=== PATIENT | female | born 1995 | race African-American/Black ===

== ENCOUNTER 2019-06-14 16:39 | Emergency (ER) | payer BC ==
[~2019-06-14] VITALS: Ht 177.8 cm; Wt 57.3 kg
[2019-06-14] MEDS ORDERED: EFFE150C2 PO (16:52)
[2019-06-14] MEDS ORDERED: SYNT125T PO (16:52)
[2019-06-14] MEDS ORDERED: ABIL1TAB11 PO (16:52)
[2019-06-14] MEDS ORDERED: XULA1DIS TOP (16:56)
[2019-06-14] MEDS ORDERED: NS 1,000 ML IV ONE (17:30)
[2019-06-14] MEDS ORDERED: KETOROLAC 30 MG/ML 1ML VIAL IV ONE (17:30)
[2019-06-14] MEDS ORDERED: METOCLOPRAMIDE INJ 10MG/2ML VIAL (J2765 PER 1) IV ONE (17:30)
[2019-06-14] MEDS ORDERED: DICYCLOMINE 10 MG CAP PO ONE (17:30)
[2019-06-14 18:13] LABS: BASO % 0.2 % (0.0-1.0); EOS % 0.4 % (0.0-3.0); HEMATOCRIT 29.7 % (36.0-47.0); HEMOGLOBIN 9.4 g/dl (12.0-15.5); LYMPH # 1.4 10^3/uL (1.5-5.0); LYMPH % 28.7 % (24.0-44.0); MEAN CORPUSCULAR HGB CONC 31.6 g/dl (32.0-36.5); MEAN CORPUSCULAR VOLUME 85.3 fl (80.0-96.0); MONO # 0.4 10^3/uL (0.0-0.8); MONO % 7.3 % (0.0-5.0); NEUTROPHILS # 3.1 10^3/uL (1.5-8.5); PLATELET COUNT, AUTOMATED 297 10^3/uL (150-450); RED BLOOD COUNT 3.48 10^6/uL (4.00-5.40); WHITE BLOOD COUNT 4.9 10^3/uL (4.0-10.0)
[2019-06-14 18:58] LABS: ALBUMIN 3.4 GM/DL (3.2-5.2); ALT/SGPT 29 U/L (12-78); BILIRUBIN,DIRECT < 0.1 MG/DL (0.0-0.2); BILIRUBIN,TOTAL 0.1 MG/DL (0.2-1.0); C REACTIVE PROTEIN QUANTITATIV 0.44 MG/DL (0.00-0.30); LIPASE 82 U/L (73-393); TOTAL PROTEIN 7.1 GM/DL (6.4-8.2)
[2019-06-14] MEDS ORDERED: ONDA4TAB6 PO (19:25)
[2019-06-14] MEDS ORDERED: DICY10CA13 PO (19:25)
[2019-06-14 19:30] VITALS: BP 132/73
== END 2019-06-14 19:40 | disposition home or self-care (01) ==
LOC: M ED 16:39
DX: D64.9 Anemia, unspecified (principal); R51 Headache; R10.9 Unspecified abdominal pain; R11.2 Nausea with vomiting, unspecified; R19.7 Diarrhea, unspecified; E03.9 Hypothyroidism, unspecified; K21.9 Gastro-esophageal reflux disease without esophagitis; Z98.84 Bariatric surgery status; Z79.899 Other long term (current) drug therapy; Z79.01 Long term (current) use of anticoagulants; Z79.3 Long term (current) use of hormonal contraceptives
CPT/HCPCS: 80047; 80076; 81001; 83605; 83690; 84702; 85025; 86140; 87486; 87581; 87633; 87798; 96361; 96374; 96375; 99284; C9803; J1885; J2765; U0002

== ENCOUNTER → 2019-08-01 | Outpatient (REF) | payer BC ==
[~2019-08-01] MED LIST: ABIL1TAB11 PO; DICY10CA13 PO; EFFE150C2 PO; ONDA4TAB6 PO; SYNT125T PO; XULA1DIS TOP
[2019-08-01 18:29] LABS: PERCENT SATURATION 5.4 % (13.2-45.0)
[2019-08-02 09:35] LABS: FOLATE 20.1 NG/ML (>5.4)
== END ==
LOC: M LAB REF 16:28
PROVIDERS: ATTEND Family Medicine
DX: D50.8 Other iron deficiency anemias (principal)

== ENCOUNTER → 2019-11-14 | Outpatient (CLI) | payer BC ==
[~2019-11-14] MED LIST changes: +EFFE75CA2 PO; +FERR325T81 PO
== END ==
LOC: M LABSMTC 10:55
PROVIDERS: ATTEND Anesthesiology
DX: Z01.812 Encounter for preprocedural laboratory examination (principal); Z20.828 Contact with and (suspected) exposure to other viral communicable diseases
CPT/HCPCS: C9803; U0003

== ENCOUNTER → 2019-12-19 | Outpatient (CLI) | payer SELFPAY | LOC: M LABSMTC 12:30 | PROVIDERS: ATTEND Pediatrics | DX: Z20.828 Contact with and (suspected) exposure to other viral communicable diseases (principal) ==

== ENCOUNTER 2020-02-18 12:58 | Outpatient (RCR) | payer BC, OTHER | END 2020-03-08 | LOC: M PT 12:58 | PROVIDERS: ATTEND Nurse Practitioner Family | DX: M54.41 Lumbago with sciatica, right side (principal) ==

== ENCOUNTER 2020-02-21 08:26 | Day surgery (SDC) | payer BC, OTHER ==
[~2020-02-21] VITALS: Ht 177.8 cm; Wt 80.3 kg
[~2020-02-21 08:26] MED LIST changes: +NS 1,000 ML IV ONE
--- OUTSIDE RECORDS SUMMARY | 2020-02-21 08:30 | CCD | Continuity of Care Document ---
Author Author [facility] Organization [facility] Address Unknown Phone Unavailable Care Team Providers Care Gang Pusher Name Role Phone Natalie JONES FELT HANGER, Leatha You Unavailable Unavailable Allergies, Adverse Reactions, Alerts Substance Reaction Status Criticality BUPROPION HCL Active No Information Medications Medication Instructions Dosage Effective Dates (start - stop) Sta tus Comments Xulane 150 mcg-35 mcg/24 hr transdermal patch Xulane 1 patch per week x 3 weeks then remove x 1 week - Active Tirosint 125 mcg capsule take 1 capsule by oral route every day 12 5 MCG - Active Effexor XR 75 mg capsule,extended release take 1 capsu le by oral route every day with food 75 MG - Active Xulane 150 mcg-35 mcg/24 hr transdermal patch Xulane 1 patch per week x 3 weeks then remove x 1 week - No Longer Active Problems Condition Effective Dates (start - stop) Clinical Status C omments Other sex counseling Encounter for oth general cnsl and advice on contraception Enctr srvlnc transdermal patch hormonal contraceptive device Pelvic and perineal pain Encounter for test, result negative Human immunodeficiency virus [HIV] counseling Enctr for init prescription of patch hormonal contracep dev Encounter for initial prescription of contraceptive pills Encounter for test, result negative Encntr screen for infections w sexl mode of transmiss Encounter for screening for human immunodeficiency virus Human immunodeficiency virus [HIV] counseling Encounter for initial prescription of contraceptive pills Other sex counseling Encounter for oth general cnsl and advice on contraception Procedures Procedure Date OFFICE VISIT, EST CVR Washerette Machine Operator.Svc. Other CVR Washerette Machine Operator.Svc. Contraceptive CVR Washerette Machine Operator.Svc. STI / H Results Test Name Date and Time Measure Units Reference Range Abnormal Flag St atus Comments No Information Advance Directives Directive Yes / No Effective Date File Name No Information Encounters Encounter Description Practice Location Reason(s) For Visit Diagnose s Date Provider Providers Copied on Encounter OFFICE VISIT, EST [facility], [address] [place] [address], [id number], tel:[phone] [facility] [place] Pelvic Pain (chief complaint) Other sex counselingEncounter for oth ge neral cnsl and advice on contraceptionEnctr srvlnc transdermal patch hormonal contraceptive devicePelvic and perineal pain Natalie You. [address] [place] [address], [id number], [place]. tel:[phone] Referring Provider: Leatha Pacheco, [address] [place] [address], [id number]. tel:[phone] [facility], [address] [place] [address], [address] [place] [address], tel:[phone] [facility] [place] Encounter for pregn lydia test, result negativeHuman immunodeficiency virus [HIV] counselingEnctr for init prescription of patch hormonal contracep dev Jairo Sylvester. [address] [place] [address], [id number], . tel:[phone] Referring Provider: Nga Gill, [address] [place] [address], [id number]. tel:[phone] [facility], [address] [place] [address], [id number], [place] tel:[phone] [facility] [place] Encounter for initi al prescription of contraceptive pills Jacob Jimenez. [address] [place] [address], [id number], . tel:[phone] [facility], [address] [place] [address], [id number], tel:[phone] [facility] [place] Encounter for pregn lydia test, result negativeEncntr screen for infections w sexl mode of transmissEncounter for screening for human immunodeficiency virusHuman immunodeficiency virus [HIV] counselingEncounter for initial prescription of contraceptive pillsOther sex counselingEncounter for oth general cnsl and advice on contraception Jacob Barbara. [address], [place], [id number] , [place]. tel:[phone] Referring Provider: Barbara James, [address], [place], [id number]. tel:[phone] Family History Family Member Diagnosis Age At Onset 1st degree relative No hx of coronary heart disease (female <65, male <55) 1st degree relative No hx of cancer of breast, colon, endome trium or ovary 1st degree relative No hx of venous thromboembolism Immunizations Vaccine Date Status Comments No Information Payers Payer name Insurance type Covered libertarian ID Authorization(s ) Medicaid MC [id number] Social History Type Description Quantity Date Captured Comments Alcohol Use Details Unknown Caffeine Use Details Unknown Tobacco Use Status No Information Smoking Status Never smoker Sex Female Vital Signs Date / Time: Height Weight BMI Pulse Rate Blood Pressure Temperatu re Respiratory Rate Body Surface Area Head Circumference BMI percentile Pulse Ox In haled Ox No Information Chief Complaint And Reason For Visit Most recent encounter only, dated '01/06/2020 10:00'. Pelvic Pain (chief complaint) Reason For Referral Reason For Referral No Information Plan Of Treatment Date Type Action Status No Information History Of Present Illness Encounter Date Complaint History Of Present I llness No Information Functional Status Date Functional Assessment No Information Medications Administered Medication Instructions Dosage Effective Dates (start - stop) Sta tus Comments No Information Instructions Date Instruction Additional Informati on No Information Assessments Type Assessment Date assessment Other sex counseling assessment Encounter for oth general cnsl and advic e on contraception assessment Enctr srvlnc transdermal patch hormonal contraceptive device assessment Pelvic and perineal pain Goals Health Concern Goal Type Priority Status Date No Information Medical Equipment Description Device [place] Device Identifier Effective Eron es (start - stop) Status No Information Mental Status Date Cognitive Assessment Orientation - Oriented to ti me, place, person, situation.Normal Orientation Health Concerns Observation Date No Information Concern Status Date No Information Physical Examination Exam Findings Details Neurological Normal Level of consciousne ss - Normal. Orientation - Normal. Psychiatric Normal Orientation - Salcha ed to time, place, person & situation.
--- OUTSIDE RECORDS SUMMARY | 2020-02-21 08:30 | CCD ---
Author Author [facility] Organization [facility] Address Unknown Phone Unavailable Care Team Providers Care Composite Bond Worker Name Role Phone Nano Perez PROBLEMS Type Condition ICD9-CM Code EEI22-AU Code Onset Dates Condition S tatus SNOMED Code Notes Problem Acquired hypothyroidism E03.9 Active 91907347 2 Problem Anxiety disorder, unspecified F41.9 Active 23 1145835 Problem Gastroesophageal reflux dise ase, unspecified whether esophagitis present K21.9 Active 492871034 Problem Other tobacco product nicotine dependence, uncomplicated F17.290 Active 48887393 Problem Acute right-sided low back pain with right-sided sciatica M54.41 Active 255738590 Problem Depression with anxiety F41.8 Active 77400095 6 ALLERGIES No Known Allergies ENCOUNTERS from 1994 to 2020-01-16 Encounter Location Date Provider Diagnosis [address] [address] Jan, 020 Nano Perez Acute right-sided low back pain with right-sided sciatica M54.41 ; Acquired hypothyroidism E03.9 ; Gastroesophageal reflux disease, unspecified whether esophagitis present K21.9 ; Depression with anxiety F41.8 and Other tobacco product nicotine dependence, uncomplicated F17.290 IMMUNIZATIONS Vaccine Route Administration Date Status Influenza (18 yrs & older) Flublok Unknown Jan 15, 2020 Administered SOCIAL HISTORY Tobacco Use: Social History Observation Description Date Details (start date - stop date) Former Smoker Sex Assigned At : Social History Observation Description Sex Assigned At Unknown Education: Question Answer Notes Level of Education: College Audit Question Answer Notes Total Score: 1 Interpretation: Alcohol Education Sexual Hx: Question Answer Notes Had sex in the last 12 months (vaginal, oral, or anal)? Yes LMP: 12/23/19 Have you ever had an STD? No Prevention Strategies discussed: Condoms with Men only Use protection? Yes How often? Most of the time Tobacco Use: Question Answer Notes Are you a: former smoker Quit 07/2014 - uses v ape REASON FOR REFERRAL No Information VITAL SIGNS Weight 180 lbs Jan, Height 70 in Jan, BMI 25.82 kg/m2 Jan, Heart Rate 80 /min Jan, Respiratory Rate 18 /min Jan, Temperature 99.3 degrees Fahrenheit Jan, Oximetry 100 Jan, Blood pressure systolic 120 mm Hg Jan, Blood pressure diastolic 80 mm Hg Jan, MEDICATIONS Medication SIG (Take, Route, Frequency, Duration) Notes Start Da te End Date Status Aripiprazole 5 MG 1 tablet Orally Once a day for 30 day(s) Active Levothyroxine Sodium 125 MCG 1 tablet in the morning o n an empty stomach Orally Once a day Active Pantoprazole Sodium 40 MG 1 tablet Orally Once a day Active Effexor XR 75 MG 1 capsule with food Orally Once a day for 30 day(s) Active Dicyclomine HCl 10 MG 2 capsules Orally Three times a day for 30 day( s) Active Physical Therapy evaluate and treat as directed _ 1-3X /week DX: M54.41 for 30 Days Jan, Active PROCEDURES No Information RESULTS No Results REASON FOR VISIT SLEEP MANAGER-To Establish Care , Back pain MEDICAL (GENERAL) HISTORY Type Description Date Medical History Depression/Anxiety disorder Medical History Hypothyroid Medical History GERD - Marita (scheduled for EGD/[place] noscopy 02/2020 Medical History Low Back Pain 2017 Surgical History Gallbladder 2012 Surgical History Gastric sleve 12/04/2012 Surgical History Tummy tuck 2016 Goals Section No Information Health Concerns No Information MEDICAL EQUIPMENT No Information MENTAL STATUS No Information FUNCTIONAL STATUS No Information ASSESSMENTS Encounter Date Diagnosis Assessment Notes Treatment Notes Treatm ent Clinical Notes Jan, Acute right-sided low back p ain with right-sided sciatica (ICD-10 - M54.41) supportive care advised with heat, stretching, topical rub with lidocaine and proper body mechanics, advised physical therapy. May use tylenol as needed for pain Jan, Acquired hypothyroidism (ICD-10 - E03.9) f/up after labs Jan, Gastroesophageal reflux dise ase, unspecified whether esophagitis present (ICD-10 - K21.9) f/up per Dr Kirkland - states EGD and colonoscopy pending Jan, Depression with anxiety (ICD-10 - F41.8) referred for counselling Jan, Other tobacco product nicoti ne dependence, uncomplicated (ICD-10 - F17.290) encouraged nicotine cessation PLAN OF TREATMENT Medication Medication Name Sig Start Date Stop Date Pantoprazole Sodium 40 MG 1 tablet Orally Once a day Physical Therapy evaluate and treat as directed _ 1-3X /week DX: M54.41 for 30 Days Jan, Levothyroxine Sodium 125 MCG 1 tablet in the morning o n an empty stomach Orally Once a day Treatment Notes Assessment Notes Clinical Notes Acute right-sided low back pain with right-sided sciat ica supportive care advised with heat, stretching, topical rub with lidocaine and proper body mechanics, advised physical therapy. May use tylenol as needed for pain Acquired hypothyroidism f/up after labs Gastroesophageal reflux disease, unspecified whether e sophagitis present f/up per Dr Kirkland - states EGD and colonoscopy pending Depression with anxiety referred for counselling Other tobacco product nicotine dependence, uncomplicat ed encouraged nicotine cessation Treatment Notes Test Name Order Date Comprehensive Metabolic Profile (CMP) 2020-01-16 FREE T4 & TSH PANEL 2020-01-16 Next Appt Details 6 Weeks Reason:f/u after labs Provider Name:Nano Chris, 2020-02-26 04:0 0:00 PM, [address] [place], [id number], Follow Up:6 Weeksf/u after labs Insurance Providers Payer Name Payer Address Payer Phone Insured Name Patient Relati onship to Insured Coverage Start Date Coverage End Date [facility] [employer] [facility] [address] [facility] [id number] STACEY SALMERON self
--- OUTSIDE RECORDS SUMMARY | 2020-02-21 08:30 | CCD | Continuity of Care Document ---
Author Author [facility] Organization [facility] Address Unknown Phone Unavailable Care Team Providers Care Drag Seiner Name Role Phone Natalie JONES UPS DRIVER, Leatha You Unavailable Unavailable Allergies, Adverse Reactions, [...] day with food 75 MG - Active Problems Condition Effective Dates (start - [...] and advice on contraception Procedures Procedure Date No Information Results Test Name Date and Time Measure Units Reference Range Abnormal Flag St atus Comments No Information Advance Directives Directive Yes / No Effective Date File Name No Information Encounters Encounter Description Practice Location Reason(s) For Visit Diagnose s Date Provider Providers Copied on Encounter [facility], [address] [place], [place], [id number], tel:[phone] [facility] No Information Roz You. [address] [place] [address], [id number], [place]. tel:[phone] [facility], [address] [place] [address], [id number], [place] tel:[phone] [facility] [place] Other sex counselin gEncounter for oth general cnsl and advice on contraceptionEnctr srvlnc transdermal patch hormonal contraceptive devicePelvic and perineal pain Natalie You. [address] [place] [address], [id number], [place]. tel:[phone] Referring Provider: Leatha Estrada NP, [address] [place] [address], [id number]. tel:[phone] [facility], [address] [place] [address], [id number], [place] tel:[phone] [facility] Encounter for pregn lydia test, result negativeHuman immunodeficiency virus [HIV] counselingEnctr for init prescription of patch hormonal contracep dev Jairo Sylvester. [address] [place] [address], [id number], [place]. tel:[phone] Referring Provider: Nga Gill, [address] [place] [address], [id number]. tel:[phone] [facility], [address] [place] [address], [id number], [place] tel:[phone] [facility] Encounter for initi al prescription of contraceptive pills Jacob Jimenez. [address] [place] [address], [id number], [place]. tel:[phone] [facility], [address] [place] [address], [id number], [place] tel:[phone] [facility] [place] Encounter for pregn lydia test, result negativeEncntr screen for infections w sexl mode of transmissEncounter for screening for human immunodeficiency virusHuman immunodeficiency virus [HIV] counselingEncounter for initial prescription of contraceptive pillsOther sex counselingEncounter for oth general cnsl and advice on contraception Jacob Jimenez. [address], [place], [id number] , . tel:[phone] Referring Provider: Barbara James, [address], [place], [id number]. tel:[phone] Family History Family Member Diagnosis Age At Onset 1st degree relative No hx of coronary heart disease (female <65, male <55) 1st degree relative No hx of cancer of breast, colon, endome trium or ovary 1st degree relative No hx of venous thromboembolism Immunizations Vaccine Date Status Comments No Information Payers Payer name Insurance type Covered libertarian ID Authorization(s ) Medicaid MC [id number] Social History Type Description Quantity Date Captured Comments Alcohol Use Details Unknown Caffeine Use Details Unknown Tobacco Use Status No Information Smoking Status Never smoker Sex Female Vital Signs Date / Time: Height Weight BMI Pulse Rate Blood Pressure Temperatu re Respiratory Rate Body Surface Area Head Circumference BMI percentile Pulse Ox In haled Ox No Information Chief Complaint And Reason For Visit No Information Reason For Referral Reason For Referral No [...] on No Information Assessments Type Assessment Date No Information Goals Health Concern Goal Type Priority Status Date No Information Medical Equipment Description Device [place] Device Identifier Effective Eron es (start - stop) Status No Information Mental Status Date Cognitive Assessment No Information Health Concerns Observation Date No Information Concern Status Date No Information Physical Examination Exam Findings Details No Information
--- OUTSIDE RECORDS SUMMARY | 2020-02-21 08:30 | CCD | Continuity of Care Document ---
Author Author [facility] Organization [facility] Address Unknown Phone Unavailable Care Team Providers Care Seafood Service Team Member Name Role Phone Janelle Koroma MD Unavailable Unavailable Allergies, Adverse Reactions, Alerts Substance [...] Provider Providers Copied on Encounter [facility], [address] [place], [place], [id number], tel:[phone] [facility] No Information W melissa Luis. [address] [place] [address], [id number], . tel:[phone] [facility], [address] [place] [address], [id number], [place] tel:[phone] [facility] [place] Other sex counselin gEncounter for oth general cnsl and advice on contraceptionEnctr srvlnc transdermal patch hormonal contraceptive devicePelvic and perineal pain Natalie You. [address] [place] [address], [id number], [place]. tel:[phone] Referring Provider: Leatha Estrada NP, [address] [place] [address], [id number]. tel:[phone] [facility], [address] [place] [address], [id number], [place] tel:[phone] [facility] Encounter for pregn lydia test, result negativeHuman immunodeficiency virus [HIV] counselingEnctr for init prescription of patch hormonal contracep dev Jairo Sylvester. [address] [place] [address], [id number], [place]. tel:[phone] Referring Provider: Nga Gill, [address] [place] [address], [id number]. tel:[phone] [facility], [address] [place] [address], [id number], [place] tel:[phone] [facility] Encounter for initi al prescription of contraceptive pills Jacob Jimenez. [address] [place] [address], [id number], [place]. tel:[phone] [facility], [address] [place] [address], [id number], [place] tel:[phone] Counts include [facility] beds at [facility] Encounter for pregn lydia test, result negativeEncntr screen for infections w sexl mode of transmissEncounter for screening for human immunodeficiency virusHuman immunodeficiency virus [HIV] counselingEncounter for initial prescription of contraceptive pillsOther sex counselingEncounter for oth general cnsl and advice on contraception Jacob Jimenez. [address], [place], [id number] , . tel:[phone] Referring Provider: Barbara James, [address], [place], [id number]. tel:[phone] Family History Family Member Diagnosis Age At Onset 1st degree relative No hx of coronary heart disease (female <65, male <55) 1st degree relative No hx of cancer of breast, colon, endome trium or ovary 1st degree relative No hx of venous thromboembolism Immunizations Vaccine Date Status Comments No Information Payers Payer name Insurance type Covered democrat ID Authorization(s ) Medicaid MC [id number] Social History Type Description Quantity Date Captured [...] Date No Information Medical Equipment Description Device [place] Device Identifier Effective Eron es (start - stop) Status No Information Mental Status Date Cognitive Assessment No Information Health Concerns Observation Date No Information Concern Status Date No Information Physical Examination Exam Findings Details No Information
--- OUTSIDE RECORDS SUMMARY | 2020-02-21 08:30 | CCD | Continuity of Care Document ---
Author Author [facility] Organization [facility] Address Unknown Phone Unavailable Care Team Providers Care Foot Worker Name Role Phone Dwello ROSELYN DEMPSEY, Diamond Unavailable Unavailable Allergies, Adverse Reactions, Alerts Substance [...] (start - stop) Clinical Status C omments Pelvic and perineal pain Encounter for oth general cnsl and advice on contraception Other sex counseling Encntr screen for infections w sexl mode of transmiss Other sex counseling Encounter for oth general [...] Procedures Procedure Date OFFICE VISIT, EST CVR Blood Pressure CVR Med.Svc. Height/Weight CVR Junior Manufacturing Engineer.Svc. Other CHYLMD TRACH, SWAB N.GONORRHOEAE, SWAB ELENI, DNA, DIR PROBE CLARK VAG, DNA, DIR PROBE TRICHOMONAS VAGIN, DIR PROBE Results Test Name Date and Time Measure Units Reference Range Abnormal Flag St atus Comments Panel Description: Affirm-Vaginitis Panel Final Trichomonas vaginalis 00:00:00 Not Detected Not Dete cted Final Performed by:
CDD ([id number])

Gardnerella vaginalis 00:00:00 DETECTED Not Detected A Final Performed by:
CDD ([id number])

Leeni species 00:00:00 Not Detected Not Detected Final A positive (detected) result for Eleni, Gardnerella and/or Trichomonas means nucleic acid for Eleni species,G. vaginalis and/or T. vaginalis, respectively is presentin the sample and indicates the patient has candidiasis,bacterial vaginosis, and/or trichomoniasis when consistentwith clinical signs and symptoms. Simultaneous infectionsby more than one organism are common.Negative results (not detected) for Eleni, Gardnerella orTrichomonas tests suggest the patient does not havecandidiasis, bacterial vaginosis and/or trichomoniasis,respectively, when consistent with clinical signs andsymptoms.& lt;br/>
Performed by:
CDD ([id number])

Panel Description: Chlamydia trachomatis rRNA [Presence] in Unspecified specimen by ELISSA with probe detection Final [place] Amplified CT/GC Combo - CT 00:00:00 Negative N Final Performed by:
CDD ([id number])

Panel Description: Neisseria gonorrhoeae rRNA [Presence] in Unspecified specimen by ELISSA with probe detection Final [place] Amplified CT/GC Combo - GC 00:00:00 Negative N Final : No

Performed by:
CDD ([id number])

Advance Directives Directive Yes / No Effective Date File Name No Information Encounters Encounter Description Practice Location Reason(s) For Visit Diagnose s Date Provider Providers Copied on Encounter OFFICE VISIT, EST [facility], [address] [place] [address], [id number], tel:[phone] [facility] Pelvic Pain (chief complaint) Pelvic and perineal painEncounter for ot h general cnsl and advice on contraceptionOther sex counselingEncntr screen for infections w sexl mode of transmiss Jing Fields. [address] [place] [address], [id number], [place]. tel:[phone] Referring Provider: Diamond Trujillo, [address] [place] [address], [id number]. tel:[phone] [facility], [address] [place] [address], [id number], tel:[phone] PPAL[facility] [place] Other sex counselin gEncounter for oth general cnsl and advice on contraceptionEnctr srvlnc transdermal patch hormonal contraceptive devicePelvic and perineal pain Natalie You. [address] [place] [address], [id number], [place]. tel:[phone] Referring Provider: Leatha Estrada LODGE ATTENDANT, [address] [place] [address], [id number]. tel:[phone] [facility], [address] [place] [address], [id number], [place] tel:[phone] [facility] Encounter for pregn lydia test, result negativeHuman immunodeficiency virus [HIV] counselingEnctr for init prescription of patch hormonal contracep dev Jairo Sylvester. [address] [place] [address], [id number], [place]. tel:[phone] Referring Provider: Nga Gill, [address] [place] [address], [id number]. tel:[phone] [facility], [address] [place], [place], [id number], tel:[phone] PPAL[facility] [place] Encounter for initi al prescription of contraceptive pills Jacob Barbara. [address] [place], [place], [id number], . tel:[phone] [facility], [address] [place], [place], [id number], tel:[phone] PPAL[facility] [place] Encounter for pregn lydia test, result negativeEncntr screen for infections w sexl mode of transmissEncounter for screening for human immunodeficiency virusHuman immunodeficiency virus [HIV] counselingEncounter for initial prescription of contraceptive pillsOther sex counselingEncounter for oth general cnsl and advice on contraception Thaddeusninfa Tripathiline. [address] [place] [address], [id number] , . tel:[phone] Referring Provider: Barbara James, [address] [place] [address], [address] [place] [address]. tel:[phone] Family History Family Member Diagnosis Age At Onset 1st degree relative No hx of coronary heart disease (female <65, male <55) 1st degree relative No hx of cancer of breast, colon, endome trium or ovary 1st degree relative No hx of venous thromboembolism Immunizations Vaccine Date Status Comments No Information Payers Payer name Insurance type Covered democrat ID Authorization(s ) [facility] CI [id number] Social History Type Description Quantity Date Captured Comments Alcohol Use Details Unknown Caffeine Use Details Unknown Tobacco Use Status No Information Smoking Status Never smoker Sex Female Vital Signs Date / Time: Height Weight BMI Pulse Rate Blood Pressure Temperatu re Respiratory Rate Body Surface Area Head Circumference BMI percentile Pulse Ox In haled Ox 9:58 AM 70.00 in 175.61 lbs 25.20 kg/meter(2) 120/82 m m[Hg] Chief Complaint And Reason For Visit Most recent encounter only, dated '01/13/2020 09:50'. Pelvic Pain (chief complaint) Reason For Referral [...] No Information Assessments Type Assessment Date assessment Pelvic and perineal pain assessment Encounter for oth general cnsl and advic e on contraception assessment Other sex counseling assessment Encntr screen for infections w sexl mode of transmiss Goals Health Concern Goal Type Priority Status Date No Information Medical Equipment Description Device [place] Device Identifier Effective Eron es (start - stop) Status No Information Mental Status Date Cognitive Assessment No Information Health Concerns Observation Date No Information Concern Status Date No Information Physical Examination Exam Findings Details Neurological Normal Level of consciousne ss - Normal. Orientation - Normal. Genitourinary Comments Small 0.5cm fissure noticed at introitus at 6pm minimally tender to palpation. Genitourinary Normal Urethral meatus - No rmal. Urethra - Normal. Vagina - Normal. Cervix - Normal. Genitourinary * External genitalia - fissure.
--- OUTSIDE RECORDS SUMMARY | 2020-02-21 08:30 | CCD | Continuity of Care Document ---
Author Author [facility] Organization [facility] Address Unknown Phone Unavailable Care Team Providers Care Manufacturing Clerk Name Role Phone Dwello ROSELYN DEMPSEY, Diamond Unavailable Unavailable Allergies, Adverse Reactions, Alerts Substance Reaction Status Criticality BUPROPION HCL Active No Information Medications Medication Instructions Dosage Effective Dates (start - stop) Sta tus Comments metronidazole 500 mg tablet take 1 tablet by oral route BID X 7 days - Active Xulane 150 mcg-35 mcg/24 hr [...] (start - stop) Clinical Status C omments Acute vaginitis Pelvic and perineal pain Encounter for oth [...] Provider Providers Copied on Encounter [facility], [address] [place] [address], [id number], tel:[phone] PPNCNY [place] Acute vaginitis Jing Fields. [address] [place] [address], [address] [place] [address], . tel:[phone] [facility], [address] [place] [address], [id number], [place] tel:[phone] PPNC[facility] [place] Pelvic and perineal painEncounter for oth general cnsl and advice on contraceptionOther sex counselingEncntr screen for infections w sexl mode of transmiss Jing Fields . [address] [place] [address], [address] [place] [address], . tel:[phone] Referring Provider: Diamond Mayes, [address] [place] [address], [id number]. tel:[phone] [facility], [address] [place] [address], [id number], [place] tel:[phone] PPNCNY [place] Other sex counselin gEncounter for oth general cnsl and advice on contraceptionEnctr srvlnc transdermal patch hormonal contraceptive devicePelvic and perineal pain Natalie You. [address] [place] [address], [id number], [place]. tel:[phone] Referring Provider: Leatha Estrada NP, [address] [place] [address], [id number]. tel:[phone] [facility], [address] [place] [address], [id number], [place] tel:[phone] PP[facility] [place] Encounter for pregn lydia test, result negativeHuman immunodeficiency virus [HIV] counselingEnctr for init prescription of patch hormonal contracep dev Jairo Sylvester. [address] [place] [address], [id number], . tel:[phone] Referring Provider: Nga Gill, [address] [place] [address], [id number]. tel:[phone] [facility], [address] [place] [address], [id number], tel:[phone] PPNJNY [place] Encounter for initi al prescription of contraceptive pills Jacob Jimenez. [address] [place] [address], [id number], [place]. tel:[phone] [facility], [address] [place] [address], [id number], tel:[phone] PPNJNY [place] Encounter for pregn lydia test, result negativeEncntr screen for infections w sexl mode of transmissEncounter for screening for human immunodeficiency virusHuman immunodeficiency virus [HIV] counselingEncounter for initial prescription of contraceptive pillsOther sex counselingEncounter for oth general cnsl and advice on contraception Jacob Jimenez. [address] [place] [address], [id number] , . tel:[phone] Referring Provider: Barbara James, [address] [place] [address], [id number]. tel:[phone] Family History Family Member Diagnosis Age At Onset 1st degree relative No hx of coronary heart disease (female <65, male <55) 1st degree relative No hx of cancer of breast, colon, endome trium or ovary 1st degree relative No hx of venous thromboembolism Immunizations Vaccine Date Status Comments No Information Payers Payer name Insurance type Covered libertarian ID Authorization(s ) [facility] CI [id number] Social History Type Description Quantity Date Captured [...] No Information Assessments Type Assessment Date assessment Acute vaginitis Goals Health Concern Goal Type Priority Status Date No Information Medical Equipment Description Device [place] Device Identifier Effective Eron es (start - stop) Status No Information Mental Status Date Cognitive Assessment No Information Health Concerns Observation Date No Information Concern Status Date No Information Physical Examination Exam Findings Details No Information
--- OUTSIDE RECORDS SUMMARY | 2020-02-21 08:30 | CCD | Continuity of Care Document ---
Author [facility] Organization [facility] Address [address] [place] [address] Phone Care Team Providers Care Loom Technician Name Role Phone Dwello Diamond GRECO Unavailable Unavailable Allergies, Adverse Reactions, Alerts Substance [...] Provider Providers Copied on Encounter [facility], [address] [place] [address], [id number], tel:[phone] PPNC[facility] [place] Acute vaginitis Jing Fields. [address] [place] [address], [address] [place] [address], . tel:[phone] [facility], [address] [place] [address], [id number], [place] tel:[phone] PPNC[facility] [place] No Information D zackary Fields. [address] [place] [address], [address] [place] [address], . tel:[phone] [facility], [address] [place] [address], [address] [place] [address], tel:[phone] PPNC[facility] [place] Pelvic and perineal painEncounter for oth general cnsl and advice on contraceptionOther sex counselingEncntr screen for infections w sexl mode of transmiss Jing Fields . [address] [place] [address], [id number], [place]. tel:[phone] Referring Provider: Diamond Rutherfordley, [address] [place] [address], [address] [place] [address]. tel:[phone] [facility], [address] [place] [address], [id number], [place] tel:[phone] PPNCNY [place] Other sex counselin gEncounter for oth general cnsl and advice on contraceptionEnctr srvlnc transdermal patch hormonal contraceptive devicePelvic and perineal pain Natalie You. [address] [place] [address], [id number], [place]. tel:[phone] Referring Provider: Leatha Estrada NP, [address] [place] [address], [id number]. tel:[phone] [facility], [address] [place] [address], [id number], tel:[phone] PPNDNY [place] Encounter for pregn lydia test, result negativeHuman immunodeficiency virus [HIV] counselingEnctr for init prescription of patch hormonal contracep dev Jairo Sylvester. [address] [place] [address], [address] [place] [address], . tel:[phone] Referring Provider: Nga Gill, [address] [place] [address], [id number]. tel:[phone] [facility], [address] [place] [address], [id number], tel:[phone] PPNDNY [place] Encounter for initi al prescription of contraceptive pills Jacob Jimenez. [address] [place] [address], [id number], . tel:[phone] [facility], [address] [place] [address], [id number], tel:[phone] PPNC[facility] [place] Encounter for pregn lydia test, result negativeEncntr screen for infections w sexl mode of transmissEncounter for screening for human immunodeficiency virusHuman immunodeficiency virus [HIV] counselingEncounter for initial prescription of contraceptive pillsOther sex counselingEncounter for oth general cnsl and advice on contraception Jacob Jimenez. [address] [place] [address], [id number] , . tel:[phone] Referring Provider: Barbara James, [address] [place] [address], [id number]. tel:[phone] Family History Family Member Diagnosis Age At Onset 1st degree relative No hx of coronary heart disease (female <65, male <55) 1st degree relative No hx of cancer of breast, colon, endome trium or ovary 1st degree relative No hx of venous thromboembolism Immunizations Vaccine Date Status Comments No Information Payers Payer name Insurance type Covered alliance party ID Authorization(s ) [facility] CI [id number] Social History Type Description Quantity Date Captured [...] Date No Information Medical Equipment Description Device [place] Device Identifier Effective Eron es (start - stop) Status No Information Mental Status Date Cognitive Assessment No Information Health Concerns Observation Date No Information Concern Status Date No Information Physical Examination Exam Findings Details No Information
--- OUTSIDE RECORDS SUMMARY | 2020-02-21 08:30 | CCD ---
Author Organization Unknown Address [address] [place] [address] Phone [phone] Care Team Providers Care Broaching Machine Set Up Operator Name Role Phone [facility] 106 Unavailable Allergies Code Code System Name Reaction Severity Status Onset NKDA Notes: SEASONAL | DUST Medications Name Status Start Date Stop Date aripiprazole 5 mg tablet Active Not adebayo ilable Clenpiq 10 mg-3.5 gram-12 gram/160 mL oral solution Completed 02/14/2020 dicyclomine 10 mg capsule Active Not av ailable gabapentin 300 mg capsule 1 tablet once daily in the evening Active Not available levothyroxine 125 mcg tablet TAKE ONE TABLET BY MOUTH EVERY DAY Active Not available metronidazole 500 mg tablet TAKE ONE TABLET BY MOUTH TWICE A DAY FOR 7 DAYS Active Not available ondansetron 4 mg disintegrating tablet DISSOLVE ONE TABLET ON TONGUE EVERY 6 TO 8 HOURS NEEDED FOR NAUSEA/ VOMITING Completed 02/14/2020 pantoprazole 40 mg tablet,delayed releas e TAKE 1 TABLET BY MOUTH 1/2 HOUR PRIOR TO BREAKFAST AND 1 TABLET BY MOUTH PRIOR TO BEDTIME STOP OMEPRAZOLE Active Not availabl e sucralfate 1 gram tablet 1 tablet up to twice daily separate from your other medications as directed Active Not available venlafaxine ER 75 mg capsule,extended re lease 24 hr TAKE ONE CAPSULE BY MOUTH EVERY DAY Completed 09/2020 venlafaxine ER 75 mg tablet,extended rel ease 24 hr TAKE ONE TABLET BY MOUTH EVERY DAY Active Not available Xulane 150 mcg-35 mcg/24 hr transdermal patch APPLY 1 PATCH PER WEEK FOR 3 WEEKS THEN REMOVE FOR A WEEK Active Not available Problems Name Status Onset Date Source Iron Deficiency Anemia Secondary to Inadequate Dietary Iron Intake Active 08/01/2019 History Epigastric Pain Active 08/01/2019 History Procedures Date Name Performed by 02/14/2020 XR, Lumbar Spine Information not avai lable Notes: Bariatric surgery, , Cholecystect mihir Results Lab Results None recorded. Past Encounters 02/14/2020 Low Back Pain; Epigastric Pain; Mental Health Screening Assessment Nely Mcdonnell PA-C: [address] [place] [address], Ph. Social History Tobacco Smoking Status Former Smoker Vaccine List Vaccine Type influenza, injectable, quadrivalent 11/20/2019 Plan of Care Reminders Provider Appointments None recorded. Lab None recorded. Referral None recorded. Procedures None recorded. Surgeries None recorded. Imaging None recorded. Vitals 02/14/2020 09:20AM ESTABLISHED [id number] Height Weight BMI Blood Pressure 70 in 179 lbs 6 oz 25.7 kg/m2 130/83 mm[Hg] 08/01/2019 Height Weight Blood Pressure 70 in 168 lbs 8 oz 121/77 mm[Hg]"
--- OUTSIDE RECORDS SUMMARY | 2020-02-21 08:31 | CCD ---
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 FT1 Private MD: TAYLA [facility] Mumtaz, Frances Diaz MD Diagnosis: Depression;Anxiety disorder, unspecified Presentation: 03/06 10:22 Transition of care: patient was not received from another [facility] setting of care. Presenting complaint: Patient states - She started having body aches, for the passed couple of weeks that she attributes to working 8 hour shifts and having to walk 1 mile back and forth to work. Pt also reports nausea since she started a new control the 14 of February. Pt denies any , Headache, sore throat, cough, fever/chills, or diarrhea. Pt also reports anxiety attacks, she is currently;y not being treated for anxiety a nd has a hard time getting in to see counselors at school. > pt now reports seeing white flashes panchal she closes her eyes, that just started as she was waiting for triage. Patient denies any travel outside the [place] in the last 30 days. 10:22 Method Of Arrival: Walk-In 1 10:22 Acuity: Semi-Urgent - 4 tp1 Triage Assessment: 10:30 SEPSIS SCREEN: A Confirmed or Suspected Infection is tp1 Unknown, their temperature is not <96.8 or >100.9, their heart rate is not >90, their RR is not >20, it is unknown if their WBC is <4 or >12, the patient does not have new or unexplained altered mental status. SIRS or Sepsis criteria is not present. The patient appears to have some mild discomfort, The patient is behaving appropriately according to age, cooperative. The patient complains of pain in back. GI: The patient reports nausea. ERP ENGINEER: 10:27 LMP 03/06/2019 tp1 Histor ical: - Allergies: No known drug Allergies; - Home Meds: 1. Effexor XR 75 mg Oral cp24 1 cap once daily 2. Synthroid 125 mcg Oral tab 1 tab once daily - PMHx: depressive disorder; HYPOTHYROIDISM; - PSHx: Gastric Bypass; Cholecystectomy; abdominalplasty; - Med Reconciliation:: Green Alert: The patient's med list is complete to the best of the nurse's/provider's knowledge. Medications reviewed, completed by nurse verbally from patient/family. - Immunization history: All immunizations are up to date. - : Family history not pertinent. - Advance directive: There is no existing advanced directive. Information offered. - Family History:: mother has a history of diabetes mellitus, Father has a history of diabetes mellitus, has a history of hypertension. - Social History: Smoking status (Tobacco): Patient vapes/uses an electronic cigarette. No barriers to communication noted, The patient speaks fluent Ukrainian. Screenin:32 AUDIT 1. How often do you have a drink containing alcohol? tp1 Monthly or less (1 point). Drug Abuse Screening Test: 1. Have you used drugs other than those required for medical reasons? No (0 points), screen is complete, no risk. Abuse screen: Denies threats or abuse. Denies injuries from another. Nutritional screening: No deficits noted. Patient has no identifiable fall risk (Goddard Scale: 0 points). Assessment: 10:39 The patient a ppears to have some mild discomfort, The alc patient is anxious, exhibiting flat affect, listless, pleasant, The patient reports that he/she has been fatigued, The patient denies that he/she has been having chills, feeling like he/she has had a fever, feeling ill, having sweats. Neuro: No Neuro Deficit is noted. Cardiovascular: No deficits noted. Respiratory: No deficits noted. GI: The patient reports nausea. : No deficits noted. Musculoskeletal: Patient states that she feels sore and achy all over, patient shows no signs of musculoskeletal abnormalities or deficits. Vital Signs: 10:27 BP 134 / 83; Pulse 69; Resp 14; Temp 98.6; Pulse Ox 100% on tp1 R/A; Weight 68.04 kg; Height 5 ft. 10 in. (177.80 cm); Pain 7/10; 12:42 BP 137 / 95; Pulse 67; Resp 16; Temp 98.6; Pulse Ox 100% ; alc 10:27 Body Mass Index 21.52 (68.04 kg, 177.80 cm) tp1 Ambre Coma Score: 11:21 Eye Response: spontaneous(4). Verbal Response: oriented(5). cpg Motor Response: obeys commands(6). Total: 15. ED Course: 09:45 Patient arrived in ED. mkl 10:[address] Phys[facility].tp1 10:27 Triage completed. tp1 10:28 Pia Sabillon, HARLEY is Primary Nurse. alc 10:30 Arm band placed on right wrist. Patient has correct armband tp1 on for positive identification. 10:33 Bing Doshi [facility] cpg 10:33 Danielle Lewis MD is Attending Physician. cpg 11:20 Radiology: Patient returned from CT at 11:20. alc 12:00 No procedures ordered. Labs drawn by lab staff. alc 12:37 [facility]pg Physician. Administered Medications: No medications were administered Outcome: 12:38 Discharge ordered by MD. cpg 12:42 Patient verbalized understanding of disposition alc instructions. Patient has no functional deficits. 12:42 Patient discharged to home ambulatory. 12:42 Condition: stable Condition: improved 12:42 Discharge instructions given to patient, Patient was instructed on discharge instructions, follow up and referral plans. The patient demonstrated understanding of instructions, No prescriptions given. 12:42 Vitals are Complete in accordance with Emergency Department Policy. 12:46 Patient left the ED. alc 03/07 10:26 24 hour call back attempted, no answer [facility] Signatures: Bing Doshi NP [employer] Buddy Richmond RN RN tp1 Pia Sabillon RN RN alc Lanning, Mary Raymundo Sanchez RN RN jh6 Name Value Range Interpretation Code Description Data Perri rce(s) Supporting Document(s) ID Date Data Source [id number] 03/06/2019 09:43:00 AM EST [facility] Name: STACEY SALMERON [facility] Rec #: [id number] 2 : 1995 Age/Sex: 23F Date of Service: 03/06/19 DISPOSITION SUMMARY Discharge Summary [facility] Name:Stacey Salmeron Emergency Department Age:23 yrs Sex:Female :1995 Arrival:03/06/2019 09:43 Departure Date03/06/2019 Departure Time12:46 Private [facility] Outcome: Discharge Location: Home/Self Care Condition: Good Chief Complaint: Anxiety, Nausea Diagnosis: Depression, Anxiety disorder, unspecified Prescriptions: Follow up: [facility], Frances Diaz MD Custom Notes: Stacey, your lab work is stable other than some anemia. I would like you to take frtt-upk-ssocwwh iron about 3 times a day. Your thyroid is stable with a normal TSH of 2.3. I made an appointment for you with Dr. Rosales at [facility]. It is for 9:30 tomorrow morning. Please keep the appointment. You may need an adjustment of your Effexor. If your symptoms worsen or if you become anxious again, please return. Attending Physician: Danielle Lewis MD Private MD: [facility] Mid Level Provider: Bing Doshi NP Followup Physician: [facility], Frances Diaz MD Orders: Cbc With Auto Differential, COMMET, Ct Head No Contrast, TSH, Beta Hcg,Qualitative Discharge Instruction: Discharge Summary Sheet, Social Anxiety Disorder, Adult, Panic Attack, Yift-dt-Ekug, Medication Reconciliation Name Value Range Interpretation Code Description Data Perri rce(s) Supporting Document(s) ID Date Data Source [id number] 03/06/2019 12:18:00 PM EST [facility] Name Value Range Interpretation Code Description Data [facility] rce(s) Supporting Document(s) Sodium 140 mmol/L 137-145 Normal (applies to non-numeric resul ts) [facility] Potassium 3.5-5.1 Normal (applies to non-numeric resul ts) [facility] Chloride 109 mmol/L 98-112 Normal (applies to non-numeric resul ts) [facility] Carbon Dioxide CO2 22.0-33.0 Normal (applies to non-numer ic results) [facility] Anion Gap 4.0-11.0 Normal (applies to non-numeric resul ts) [facility] BUN 10 mg/dL 7-17 Normal (applies to non-numeric resul ts) [facility] Creatinine 0.70-1.20 Normal (applies to non-numeric resul ts) [facility] GFR >60 Normal (applies to non-numeric results) [facility] Result based on MDRD formula. Glucose Level 81 mg/dL 74-99 Normal (applies to non-numeric re sults) [facility] The reference range is only applicable w hen fasting. Calcium-Uncorrected 8.4-10.2 Normal (applies to non-nume marlin results) [facility] Corrected Calcium 8.4-10.2 Normal (applies to non-numeri c results) [facility] Bilirubin,Total 0.2-1.3 Normal (applies to non-numeric results) [facility] SGOT(AST) 29 U/L 14-36 Normal (applies to non-numeric resul ts) [facility] SGPT(ALT) 29 U/L 9-52 Normal (applies to non-numeric resul ts) [facility] Alkaline Phosphatase 32 U/L 38-126 Below low normal [facility] can increase Alkaline Phosp le vels up to 2 times the normal adult value. Normal values for children and adolescents are 2 to 3 times the normal adult value. Total Protein 6.3-8.2 Normal (applies to non-numeric re sults) [facility] Albumin 3.5-5.0 Below low normal [facility] ID Date Data Source [id number] 03/06/2019 12:18:00 PM [facility] Name Value Range Interpretation Code Description Data Perri rce(s) Supporting Document(s) Thyroid Stimulate Hormone TSH 0.358-3.740 No rmal (applies to non-numeric results) [facility] ID Date Data Source [id number] 03/06/2019 12:04:00 PM [facility] Name Value Range Interpretation Code Description Data Perri rce(s) Supporting Document(s) Beta HCG Screen,Qualitative Negative Normal (appli es to non-numeric results) [facility] ID Date Data Source [id number] 03/06/2019 11:53:00 AM [facility] Name Value Range Interpretation Code Description Data Perri rce(s) Supporting Document(s) White Blood Count 4.8-10.8 Below low normal [facility] Red Blood Count 3.68-5.22 Below low normal [facility] Hemoglobin 11.2-15.7 Below low normal [facility] Hematocrit 34.1-44.9 Below low normal [facility] Mean Corpuscular Volume 81-99 Below low normal [facility] Mean Corpuscular Hemoglobin 27.0-33.0 Below low normal [facility] Mean Corpuscular HGB Conc 32.0-36.0 Normal (applies to no n-numeric results) [facility] Red Cell Distribution Width 11.5-14.5 Above high normal [facility] Platelet Count 357 X10 3/uL 130-450 Normal (applies to non-numeric results) [facility] Mean Platelet Volume 9.5-12.7 Normal (applies to non-num sapphire results) [facility] Imm Grans% (AUTO) 0 % 0-2 Normal (applies to non-numeri c results) [facility] Neutrophils % (AUTO) 56 % 40-75 Normal (applies to non-num sapphire results) [facility] Lymphocytes % (AUTO) 35 % 21-46 Normal (applies to non-num sapphire results) [facility] Monocytes % (AUTO) 7 % 5-12 Normal (applies to non-numer ic results) [facility] Eosinophils % (AUTO) 1 % 1-5 Normal (applies to non-num sapphire results) [facility] Basophils % (AUTO) 1 % 0-1 Normal (applies to non-numer ic results) [facility] Imm Grans# (AUTO) 0.00-0.50 Normal (applies to non-numeri c results) [facility] Neutrophils # (AUTO) 1.5-8.1 Normal (applies to non-num sapphire results) [facility] Lymphocytes # (AUTO) 1.0-3.1 Normal (applies to non-num sapphire results) [facility] Monocytes # (AUTO) 0.2-1.3 Normal (applies to non-numer ic results) [facility] Eosinophils# (AUTO) 0.0-0.5 Below low normal [facility] Basophils # (AUTO) 0.00-0.10 Normal (applies to non-numer ic results) [facility] ID Date Data Source [id number] 03/06/2019 02:29:00 PM EST [facility] Hospital Name: STACEY SALMERON : 1995 Ag e/Sex: 23F Ordering Provider: IGNACIO Lin Med Rec #: [id number] Reg Status: [facility] Room #: Date of Service: 03/06/19 Report Number: [id number] cc:PCP None Send Report To: [id number] CT/CT Head No Contrast Reason for exam: VISUAL CHANGES, WGT LOSS Prior examination: None available. FINDINGS: There is no evidence of acute intracranial pathology. There is no positive mass effect or shift of the midline structures. The lateral, third, and fourth ventricles are unremarkable in size and position. There are no acute extraaxial fluid collections. Evaluation of the visualized paranasal sinuses and mastoid air cells is unremarkable. IMPRESSION: No evidence of significant acute intracranial pathology. While performing the above CT exam, the following dose reduction techniques wereused: *Automated exposure control *Adjustment of the mA and/or kV according to patient size *Use of iterative reconstruction technique CT Dose in mSv: 1.3708 Contrast Agent in ml: Method of Administration: REPORT SIGNATURE ON FILE Reported By: Chico Rodrigues MD <Electronically signed by Chico Rodrigues MD> 03/07/19 1058 Dictation Date/Time: 03/06/19 1135 Transcribed Date/Time: 03/06/19 1429 Locker Room Attendant: MICHELA Name Value Range Interpretation Code Description Data Perri rce(s) Supporting Document(s) Procedure Social History Code Duration Value Status Description Data Source(s ) Smoking 01/16/2020 12:00:00 AM EST Never smoker completed Never s moker NextGen ([facility]) Smoking 01/15/2020 12:00:00 AM EST Former Smoker completed Former Smoker eCW1 ([facility]) Vital Signs ID Date Data Source UNK Name Value Range Interpretation Code Description Data Source(s) Body weight 2870 [oz_av] 2870 [oz_av] CONCHIS ([facility]) Systolic blood pressure 130 mm[Hg] 130 mm[Hg] A THENA ([facility]) Body mass index (BMI) [Ratio] 25.7 kg/m2 25.7 k g/m2 CONCHIS ([facility]) Body height 70 [in_i] 70 [in_i] CONCHIS ([facility]) Diastolic blood pressure 83 mm[Hg] 83 mm[Hg] CONCHIS ([facility]) Diastolic blood pressure 80 mm[Hg] 80 mm[Hg] eCW1 ([facility]) Systolic blood pressure 120 mm[Hg] 120 mm[Hg] e CW1 ([facility]) Body temperature 99.3 [degF] 99.3 [degF] eCW1 ( [facility]) Respiratory rate 18 /min 18 /min eCW1 ([facility]) Heart rate 80 /min 80 /min eCW1 ([facility]) Body mass index (BMI) [Ratio] 25.82 kg/m2 25.82 kg/m2 eCW1 ([facility]) Body height 70 [in_i] 70 [in_i] eCW1 ([facility]) Body weight 180 [lb_av] 180 [lb_av] eCW1 ([facility]) Body mass index (BMI) [Ratio] 25.20 kg/m2 Overweight 25.20 kg/m2 NextGen ([facility]) Diastolic blood pressure 82 mm[Hg] 82 mm[Hg] NextGen ([facility]) Systolic blood pressure 120 mm[Hg] 120 mm[Hg] N extGen ([facility]) Body weight 79.656 kg 79.656 kg Next[facility] ([facility]) Body height 177.80 cm 177.80 cm NextGen ([facility]) Body mass index (BMI) [Ratio] 25.08 kg/m2 Overweight 25.08 kg/m2 NextGen ([facility]) Diastolic blood pressure 70 mm[Hg] 70 mm[Hg] NextGen ([facility]) Systolic blood pressure 110 mm[Hg] 110 mm[Hg] N extGen ([facility]) Body weight 79.288 kg 79.288 kg NextGen ([facility]) Body height 177.80 cm 177.80 cm NextGen ([facility]) Body weight 2696 [oz_av] 2696 [oz_av] CONCHIS ([facility]) Systolic blood pressure 121 mm[Hg] 121 mm[Hg] A THENA ([facility]) Body height 70 [in_i] 70 [in_i] CONCHIS ([facility]) Diastolic blood pressure 77 mm[Hg] 77 mm[Hg] CONCHIS ([facility]) Patient Treatment Plan of Care Planned Activity Planned Date Details Description Data Source (s) Metronidazole 500 MG Oral Tablet 01/16/2020 12:00:00 AM EST [facility] evaluate and treat 01/15/2020 12:00:00 AM EST eCW1 ([facility]) 168 HR Ethinyl Estradiol 0.96544 MG/HR / norelgestromin 0.16006 MG/HR Transdermal Patch [Xulane] 01/06/2020 12:00:00 AM EST [facility] ([facility]) 168 HR Ethinyl Estradiol 0.69791 MG/HR / norelgestromin 0.61599 MG/HR Transdermal Patch [Xulane] 10/30/2019 12:00:00 AM EDT NextGen ([facility]) 24 HR venlafaxine 75 MG Extended Release Oral Capsule CONCHIS ([facility]) Ondansetron 4 MG Disintegrating Oral Tablet CONCHIS ([facility]) Clenpiq 10 mg-3.5 gram-12 gram/160 mL oral solution CONCHIS ([facility])
--- NOTE | 2020-02-21 10:23 | ROOR ---
Patient Name: Meri Babin Procedure Date: 02/21/2020 9:34 AM Date of : 1995 Age: 24 Room: [facility] Gender: Female Note Status: Finalized Procedure: Upper GI endoscopy Indications: Epigastric abdominal pain, Iron deficiency anemia Providers: Emil Kirkland MD Referring MD: Nano Perez NP Requesting Provider: Medicines: Monitored Anesthesia Care Complications: No immediate complications. Procedure: Pre-Anesthesia Assessment: - Prior to the procedure, a History and Physical was performed, and patient medications and allergies were reviewed. The patient is competent. The risks and benefits of the procedure and the sedation options and risks were discussed with the patient. All questions were answered and informed consent was obtained. Patient identification and proposed procedure were verified by the physician, the nurse and the anesthesiologist in the procedure room. Mental Status Examination: alert and oriented. Airway Examination: normal oropharyngeal airway and neck mobility. Respiratory Examination: clear to auscultation. CV Examination: normal. Prophylactic Antibiotics: The patient does not require prophylactic antibiotics. Prior Anticoagulants: The patient has taken no previous anticoagulant or antiplatelet agents. ASA Grade Assessment: II - A patient with mild systemic disease. After reviewing the risks and benefits, the patient was deemed in satisfactory condition to undergo the procedure. The anesthesia plan was to use monitored anesthesia care (MAC). Immediately prior to administration of medications, the patient was re-assessed for adequacy to receive sedatives. The heart rate, respiratory rate, oxygen saturations, blood pressure, adequacy of pulmonary ventilation, and response to care were monitored throughout the procedure. The physical status of the patient was re-assessed after the procedure. The Endoscope was introduced through the mouth, and advanced to the second part of duodenum. The upper GI endoscopy was accomplished without difficulty. The patient tolerated the procedure well. Findings: LA Grade A (one or more mucosal breaks less than 5 mm, not extending between tops of 2 mucosal folds) esophagitis with no bleeding was found 39 to 40 cm from the incisors. Biopsies were taken with a cold forceps for histology. Verification of patient identification for the specimen was done by the physician and nurse using the patient's name, date and medical record number. Estimated blood loss was minimal. 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 This was characterized by healthy appearing mucosa, an intact appearance and mild stenosis. Patchy mild inflammation characterized by erythema and granularity was found in the gastric antrum. Biopsies were taken with a cold forceps for Helicobacter pylori testing. The duodenal bulb and second portion of the duodenum were normal. Biopsies for histology were taken with a cold forceps for evaluation of celiac disease. Impression: - LA Grade A reflux esophagitis. Rule out Art's esophagus. Biopsied. - A sleeve gastrectomy was found, characterized by an intact appearance, healthy appearing mucosa and mild stenosis. - Gastritis. Biopsied. - Normal duodenal bulb and second portion of the duodenum. Biopsied. Recommendation: - Patient has a contact number available for emergencies. The signs and symptoms of potential delayed complications were discussed with the patient. Return to normal activities tomorrow. Written discharge instructions were provided to the patient. - High fiber diet. - Anti-acid reflux diet -- small meals, sit upright atleast 1 hour after meals, avoid fatty/ oily foods and avoid foods that cause reflux. - Continue present medications. - Await pathology results. - Follow an antireflux regimen. - Telephone GI clinic for pathology results in 2 weeks. - Check hemogram with Iron studies to check resolution of anemia in 1 month. - Return to GI clinic if persistent symptoms or new symptoms. - Return to primary care physician. Procedure Code(s): --- Professional --- 81455, Esophagogastroduodenoscopy, flexible, transoral; with biopsy, single or multiple Diagnosis Code(s): --- Professional --- K21.0, Gastro-esophageal reflux disease with esophagitis Z98.84, Bariatric surgery status K29.70, Gastritis, unspecified, without bleeding R10.13, Epigastric pain D50.9, Iron deficiency anemia, unspecified CPT copyright 2019 [employer]. All rights reserved. The codes documented in this report are preliminary and upon blasting clay miner review may be revised to meet current compliance requirements. Emil Kirkland MD Emil Kirkland MD 02/21/2020 10:23:24 AM Electronically signed by Emil Kirkland MD Number of Addenda: 0 Note Initiated On: 02/21/2020 9:34 AM Estimated Blood Loss: Estimated blood loss was minimal.
--- NOTE | 2020-02-21 10:26 | ROOR ---
Patient Name: Meri Babin Procedure Date: 02/21/2020 9:36 AM Date of : 1995 Age: 24 Room: [facility] Gender: Female Note Status: Finalized Procedure: Colonoscopy Indications: Iron deficiency anemia Providers: Emil Kirkland MD Referring MD: Nano Perez NP Requesting Provider: Medicines: Monitored Anesthesia Care Complications: No immediate complications. Procedure: Pre-Anesthesia Assessment: - Prior to the procedure, a History and Physical was performed, and patient medications and allergies were reviewed. The patient is competent. The risks and benefits of the procedure and the sedation options and risks were discussed with the patient. All questions were answered and informed consent was obtained. Patient identification and proposed procedure were verified by the physician, the nurse and the anesthesiologist in the procedure room. Mental Status Examination: alert and oriented. Airway Examination: normal oropharyngeal airway and neck mobility. CV Examination: normal. Prophylactic Antibiotics: The patient does not require prophylactic antibiotics. Prior Anticoagulants: The patient has taken no previous anticoagulant or antiplatelet agents. ASA Grade Assessment: II - A patient with mild systemic disease. After reviewing the risks and benefits, the patient was deemed in satisfactory condition to undergo the procedure. The anesthesia plan was to use monitored anesthesia care (MAC). Immediately prior to administration of medications, the patient was re-assessed for adequacy to receive sedatives. The heart rate, respiratory rate, oxygen saturations, blood pressure, adequacy of pulmonary ventilation, and response to care were monitored throughout the procedure. The physical status of the patient was re-assessed after the procedure. The Colonoscope was introduced through the anus and advanced to the terminal ileum, with identification of the appendiceal orifice and IC valve. The colonoscopy was performed without difficulty. The patient tolerated the procedure well. The quality of the bowel preparation was good. The terminal ileum, ileocecal valve, appendiceal orifice, and rectum were photographed. Scope insertion time was 4 minutes. Scope withdrawal time was 8 minutes. The total duration of the procedure was 12 minutes. Findings: The perianal and digital rectal examinations were normal. The terminal ileum appeared normal. The colon (entire examined portion) was moderately tortuous. Advancing the scope required using manual pressure. Non-bleeding external and internal hemorrhoids were found during retroflexion. The hemorrhoids were small. No other significant abnormalities were identified in a careful examination of the remainder of the colon. Impression: - The examined portion of the ileum was normal. - Tortuous colon. - Non-bleeding external and internal hemorrhoids. - No specimens collected. Recommendation: - Patient has a contact number available for emergencies. The signs and symptoms of potential delayed complications were discussed with the patient. Return to normal activities tomorrow. Written discharge instructions were provided to the patient. - High fiber diet. - Continue present medications. - Use original regular Metamucil one teaspoon PO BID. - Repeat colonoscopy at age 49 for screening purposes. - Follow the recommendations as per the other procedure note. - Return to primary care physician. Procedure Code(s): --- Professional --- 17171, Colonoscopy, flexible; diagnostic, including collection of specimen(s) by brushing or washing, when performed (separate procedure) Diagnosis Code(s): --- Professional --- K64.8, Other hemorrhoids D50.9, Iron deficiency anemia, unspecified Q43.8, Other specified congenital malformations of intestine CPT copyright 2019 [employer]. All rights reserved. The codes documented in this report are preliminary and upon energy efficient site manager review may be revised to meet current compliance requirements. Emil Kirkland MD Emil Kirkland MD 02/21/2020 10:26:23 AM Electronically signed by Emil Kirkland MD Number of Addenda: 0 Note Initiated On: 02/21/2020 9:36 AM Estimated Blood Loss: Estimated blood loss was minimal.
[2020-02-21] MEDS ORDERED: propofoL 200 MG/20 ML VIAL As Ordered ONE (10:32)
[2020-02-21] MEDS ORDERED: LIDOCAINE 2% 100MG/5ML SDV (FOR ANES.) As Ordered ONE (10:32)
[2020-02-21 10:40] VITALS: BP 137/83
== END 2020-02-21 10:54 | disposition home or self-care (01) ==
LOC: M OPP 08:26
PROVIDERS: ATTEND Internal Medicine Gastroenterology
DX: D50.9 Iron deficiency anemia, unspecified (principal); R19.5 Other fecal abnormalities; R10.13 Epigastric pain; K64.8 Other hemorrhoids; Q43.8 Other specified congenital malformations of intestine; D13.0 Benign neoplasm of esophagus; D13.1 Benign neoplasm of stomach; K21.00 Gastro-esophageal reflux disease with esophagitis, without bleeding; K29.70 Gastritis, unspecified, without bleeding; Z98.84 Bariatric surgery status; E03.9 Hypothyroidism, unspecified; F41.9 Anxiety disorder, unspecified; F32.9 Major depressive disorder, single episode, unspecified; Z79.899 Other long term (current) drug therapy; Z80.1 Family history of malignant neoplasm of trachea, bronchus and lung; Z80.8 Family history of malignant neoplasm of other organs or systems; Z83.3 Family history of diabetes mellitus; Z83.511 Family history of glaucoma

== ENCOUNTER → 2020-02-24 | Outpatient (REF) | payer SELFPAY ==
[~2020-02-24] MED LIST changes: -NS 1,000 ML IV ONE
== END ==
LOC: M LABSMTC 09:38 → EDSTATUS 11:55 → M LABSMTC 12:44
PROVIDERS: ATTEND Pediatrics
DX: Z20.822 Contact with and (suspected) exposure to COVID-19 (principal)

== ENCOUNTER → 2024-12-10 | Outpatient (RCR) ==
[~2024-12-10] MED LIST changes: +DICY-61 PO; -DICY10CA13 PO; -EFFE150C2 PO; +EFFE150C3 PO; +ONDA-282 PO; -ONDA4TAB6 PO
== END ==
LOC: M EMPSKH 12-03 10:12 → M EMPSSV 12-03 10:12
PROVIDERS: ATTEND Family Medicine
DX: Z20.828 Contact with and (suspected) exposure to other viral communicable diseases (principal)